=== PATIENT | male | born 1945 | race Caucasian/White ===

== ENCOUNTER 2017-08-03 07:33 | Outpatient (CLI) | payer MEDICARE, OTHER ==
--- NOTE | 2017-08-06 17:23 | Ultrasound Report ---
DATE OF SERVICE: 08/03/2017 SCROTAL DUPLEX: 08/03/2017 CLINICAL INDICATION: Pain. TECHNIQUE: Real-time sonographic vascular imaging was performed by the signal maintenance technician through the scrotum utilizing both color-flow and Doppler spectral analysis. Multiple client care representative static images were saved for review. FINDINGS The right testicle measures 3.8 x 3.1 x 2.3 cm. It demonstrates normal flow and echotexture. Trace hydrocele is noted. No varicocele is seen. A 6 mm cyst is noted in the head of the right epididymis. The left testicle measures 3.6 x 3.2 x 2.1 cm. It demonstrates normal flow and echotexture. Trace hydrocele is present. No varicocele is seen. There is a 5 mm cyst in the head of the left epididymis. There is a small left inguinal hernia present, with the neck of the hernia measuring 8 mm. Fat is noted in the hernia sac. No bowel herniation was visualized. IMPRESSION 1. Small left inguinal hernia. 2. Normal testes. TD: 08/03/2017 19:29
== END 2017-08-03 07:34 | disposition home or self-care (01) ==
LOC: DI 07:33
PROVIDERS: ATTEND Nurse Practitioner Family
DX: K40.90 Unilateral inguinal hernia, without obstruction or gangrene, not specified as recurrent (principal)
CPT/HCPCS: 76870; 93975

== ENCOUNTER 2018-08-01 18:47 | Outpatient (CLI) | payer MEDICARE, OTHER ==
--- NOTE | 2018-08-02 13:40 | Ultrasound Report ---
Reason: ESSENTIAL HYPERTENSION Procedure Date: 08/01/2018 Accession Number: [id number] / [id number] Procedure: US - Aorta Screening CPT Code: FULL RESULT: EXAM: AORTIC DOPPLER ULTRASOUND EXAM DATE: 08/01/2018 06:58 PM. CLINICAL HISTORY: Essential hypertension. COMPARISON: None. TECHNIQUE: Real-time sonographic imaging of retroperitoneal vascular structures, including color-flow, Doppler flow and spectral analysis was performed by the spot worker. Multiple customer service representative teacher static images were saved for review. FINDINGS: Aorta: The abdominal aorta was adequately visualized. No evidence for abdominal aortic aneurysm. Mild atheromatous disease is noted. Aorta proximal: Sagittal plane AP 2.6 cm. Aorta mid: Transverse: 2.4 x 1.7 cm. Aorta distal: Transverse: 1.7 x 1.9 cm. Caliber within normal limits: Yes. Plaque Visualized: Yes. Distally low amount. Right iliac: Transverse: 1.2 x 1.2 cm. Left iliac: Transverse: 1.2 x 1.2 cm. Iliac Vessels: The visualized proximal common iliac arteries are normal in caliber. Other: None. IMPRESSION: No abdominal aortic aneurysm. RADIA
== END 2018-08-01 18:48 | disposition home or self-care (01) ==
LOC: DI 18:47
PROVIDERS: ATTEND Family Medicine
DX: I10 Essential (primary) hypertension (principal)
CPT/HCPCS: 76706

== ENCOUNTER 2018-09-19 16:54 | Outpatient (CLI) | payer MEDICARE, OTHER ==
[2018-09-19 17:10] LABS: BASOPHILS # (AUTO) 0.1 10^3/uL (0.0-0.1); BASOPHILS % (AUTO) 0.7 %; EOSINOPHILS # (AUTO) 0.3 10^3/uL (0.0-0.7); EOSINOPHILS % (AUTO) 3.2 %; HGB - HEMOGLOBIN 14.5 g/dL (14.0-18.0); LYMPHOCYTES # (AUTO) 2.6 10^3/uL (1.5-3.5); LYMPHOCYTES % (AUTO) 25.3 %; MEAN CORPUSCULAR HEMOGLOBIN 31.7 pg (27.0-31.0); MEAN CORPUSCULAR HGB CONC 34.2 g/dL (32.0-36.0); MEAN CORPUSCULAR VOLUME 92.7 fL (80.0-94.0); MEAN PLATELET VOLUME 8.1 fL (7.4-11.4); MONOCYTES # (AUTO) 0.9 10^3/uL (0.0-1.0); MONOCYTES % (AUTO) 8.7 %; NEUTROPHILS # (AUTO) 6.5 10^3/uL (1.5-6.6); NEUTROPHILS % (AUTO) 62.1 %; PLT - PLATELET COUNT 282 10^3/uL (130-450); RED BLOOD COUNT 4.58 10^6/uL (4.70-6.10); RED CELL DISTRIBUTION WIDTH 13.3 % (12.0-15.0); WHITE BLOOD COUNT 10.4 x10^3/uL (4.8-10.8)
[2018-09-19 17:22] LABS: ALBUMIN 4.4 g/dL (3.2-5.5); ALBUMIN/GLOBULIN RATIO 1.6 (1.0-2.2); BILIRUBIN,TOTAL 0.5 mg/dL (0.2-1.0); CALCIUM 9.2 mg/dL (8.5-10.3); CREATININE 0.7 mg/dL (0.6-1.2); TOTAL PROTEIN 7.2 g/dL (6.7-8.2)
== END 2018-09-19 16:55 | disposition home or self-care (01) ==
LOC: RT 16:54
PROVIDERS: ATTEND Internal Medicine Gastroenterology
DX: I10 Essential (primary) hypertension (principal); R73.9 Hyperglycemia, unspecified
CPT/HCPCS: 36415; 80053; 85025; 93005

== ENCOUNTER 2018-09-27 07:55 | Day surgery (SDC) | payer MEDICARE, OTHER ==
[~2018-09-27 07:55] MED LIST: MIDAZOLAM 2 MG/2 ML VIAL IVP ONE; fentaNYL 250 MCG/5 ML VIAL IVP ONE
[2018-09-27] MEDS ORDERED: LACTATED RINGERS 1,000 ML IV ONE ×2 (08:16→09:56)
[2018-09-27 11:09] VITALS: BP 120/69
== END 2018-09-27 07:56 | disposition home or self-care (01) ==
LOC: SDS 07:55
PROVIDERS: ATTEND Internal Medicine Gastroenterology
PROC: 0DJD8ZZ Inspection of Lower Intestinal Tract, Via Natural or Artificial Opening Endoscopic (ICD-10-PCS; principal; 2018-09-27 09:15)
DX: Z12.11 Encounter for screening for malignant neoplasm of colon (principal); K57.30 Diverticulosis of large intestine without perforation or abscess without bleeding; K21.9 Gastro-esophageal reflux disease without esophagitis; I10 Essential (primary) hypertension; Z79.899 Other long term (current) drug therapy; Z87.19 Personal history of other diseases of the digestive system; Z85.46 Personal history of malignant neoplasm of prostate; Z92.3 Personal history of irradiation; Z79.82 Long term (current) use of aspirin; Z87.891 Personal history of nicotine dependence; Z80.1 Family history of malignant neoplasm of trachea, bronchus and lung
CPT/HCPCS: G0121; J3010; J7120

== ENCOUNTER 2019-01-01 09:40 | Outpatient (CLI) | payer MEDICARE, OTHER ==
--- NOTE | 2019-01-01 11:46 | Ultrasound Report ---
Reason: TESTICULAR MASS Procedure Date: 01/01/2019 Accession Number: [id number] / [id number] Procedure: US - Testicle CPT Code: FULL RESULT: EXAM: SCROTAL ULTRASOUND EXAM DATE: 01/01/2019 10:24 AM. CLINICAL HISTORY: Large left scrotal mass. History of previous bilateral inguinal hernia surgery. COMPARISON: Ultrasound 08/03/2017. TECHNIQUE: Real-time scanning was performed with static images obtained. Color-flow images were utilized. FINDINGS: Right: Testis: 2.3 x 1.7 x 0.8 cm. Diffusely echogenic right testis with absent intratesticular blood flow. Epididymis: 1.8 cm. Normal size and echotexture. No mass or abnormal blood flow. Hydrocele: None. Varicocele: None. Left: Testis: 4.4 x 3.0 x 2.9 cm. Normal size and echotexture. No mass, calcification, or abnormal blood flow. Epididymis: 1.2 cm. Incidental benign 5 mm maximal diameter left epididymal cyst of no significance. Hydrocele: Large left hydrocele Varicocele: None. IMPRESSION: 1. Large left hydrocele. 2. Normal left testis. 3. Interval development of right testicular atrophy with absent intratesticular blood flow. RADIA
== END 2019-01-01 09:41 | disposition home or self-care (01) ==
LOC: DI 09:40
PROVIDERS: ATTEND Nurse Practitioner Family
DX: N43.3 Hydrocele, unspecified (principal); N50.0 Atrophy of testis
CPT/HCPCS: 76870

== ENCOUNTER 2019-04-08 17:13 | Outpatient (CLI) | payer MEDICARE, OTHER ==
--- NOTE | 2019-04-09 19:50 | XRAY Report ---
Reason: LOW BACK PAIN Procedure Date: 04/08/2019 Accession Number: [id number] / [id number] Procedure: XR - Lumbar Spine 2 View CPT Code: FULL RESULT: EXAM: LUMBOSACRAL SPINE RADIOGRAPHY EXAM DATE: 04/08/2019 05:25 PM. CLINICAL HISTORY: Low back pain. COMPARISONS: LUMBAR SPINE 2 VIEW 05/04/2015. TECHNIQUE: 2 views. FINDINGS: Alignment: Mild levoscoliosis centered at L2-L3 and mild rightward listhesis at L2-L3 appear mildly increased. Very mild L1-L2 and L2-L3 and minimal L4-L5 retrolistheses are without significant change. Bones: Five [id number] lumbar vertebral bodies are present. No fractures or bone lesions. Disks: Mild multilevel disk space narrowing and mild to moderate vertebral body spurring are mildly progressed. Facets: L4-L5 and L5-S1 degenerative disease appears similar. Sacroiliac Joints: Unremarkable. Soft Tissues: Normal. The visualized bowel gas pattern is normal. IMPRESSION: 1. No acute abnormality. 2. Mild levoscoliosis is mildly increased. 3. Very mild L1-L2 and L2-L3 and minimal L4-L5 retrolistheses are without significant change. 4. Degenerative disk and facet disease, similar to mildly progressed. RADIA
== END 2019-04-08 17:14 | disposition home or self-care (01) ==
LOC: DI 17:13
PROVIDERS: ATTEND Nurse Practitioner Family
DX: M51.36 Other intervertebral disc degeneration, lumbar region (principal); M43.16 Spondylolisthesis, lumbar region; M47.817 Spondylosis without myelopathy or radiculopathy, lumbosacral region; M47.816 Spondylosis without myelopathy or radiculopathy, lumbar region
CPT/HCPCS: 72100

== ENCOUNTER 2020-04-19 04:34 | Emergency (ER) | payer MEDICARE, OTHER ==
--- NOTE | 2020-04-19 04:42 | ED Physician Documentation ---
History of Present Illness - Stated complaint Stated Complaint: TOOTH PX - History obtained from History obtained from: Patient - Additonal information Additional information: Patient is a 75-year-old male who presents with a chief complaint of dental pain. He reports he usually takes amoxicillin but has run out. He had surgery for cleft lip and palate as a child his last surgery was at age 14 he does have implants and hardware. He denies any fevers. Review of Systems Constitutional: reports: Reviewed and negative Eyes: reports: Reviewed and negative Ears: reports: Reviewed and negative Nose: reports: Reviewed and negative Throat: reports: Dental pain / toothache Cardiac: reports: Reviewed and negative Respiratory: reports: Reviewed and negative GI: reports: Reviewed and negative : reports: Reviewed and negative Skin: reports: Reviewed and negative Musculoskeletal: reports: Reviewed and negative Neurologic: reports: Reviewed and negative Psychiatric: reports: Reviewed and negative Endocrine: reports: Reviewed and negative Immunocompromised: reports: Reviewed and negative PD PAST MEDICAL HISTORY - Present Medications Home Medications: Ambulatory Orders Medication Instructions Recorded Confirmed Acyclovir 400 mg PO DAILY 09/26/18 09/27/18 Amlodipine Besylate 5 mg PO DAILY 09/26/18 09/27/18 Atorvastatin Calcium 40 mg PO DAILY 09/26/18 09/27/18 Losartan Potassium 100 mg PO DAILY 09/26/18 09/27/18 Naproxen Sodium [Aleve] 220 mg PO PRN PRN 09/26/18 09/27/18 Omeprazole 20 mg PO DAILY 09/26/18 09/27/18 Penicillin V Potassium 500 mg PO QID #28 tablet 04/19/20 - Allergies Allergies/Adverse Reactions: Allergies Allergy/AdvReac Type Severity Reaction Status Date / Time No Known Drug Allergies Allergy Verified 09/26/18 12:59 PD ED PE NORMAL - Vitals Vital signs reviewed: Yes - General General: Alert and oriented X 3, No acute distress, Well developed/nourished - HEENT HEENT: PERRL, Other (Evidence of prior surgeries from cleft lip and palate. No obvious abscess for drainage. No signs of Ky's angina or ANUG.) - Neck Neck: Supple, no meningeal sign - Cardiac Cardiac: RRR, No murmur - Respiratory Respiratory: Clear bilaterally - Abdomen Abdomen: Normal bowel sounds, Soft, Non tender, Non distended - Derm Derm: Warm and dry - Extremities Extremities: No deformity - Neuro Neuro: Alert and oriented X 3 - Psych Psych: Normal mood, Normal affect PD ED PE EXPANDED - HEENT HEENT Visual: 1 - tenderness Results - Vitals Vitals: Vital Signs - 24 hr 04/19/20 04:35 Temperature 36.7 C Heart Rate 70 Respiratory 18 Rate Blood Pressure 166/83 H O2 Saturation 100 Oxygen O2 Source Room air PD MEDICAL DECISION MAKING - ED course ED course: 75-year-old male with dental infection will treat empirically with penicillin no obvious abscess for incision and drainage. Will provide a referral to oral maxillofacial surgeon for follow-up.No signs of Ky's or ANUG. Departure - Departure Disposition: Home, Self Care Clinical Impression: Dental infection Condition: Stable Instructions: ED Tooth Pain Follow-Up: Sandra Mcconnell ARNP [Primary Care Provider] - Russ Hernández DDS [Provider Admit Priv/Credential] - Prescriptions: Penicillin V Potassium 500 mg PO QID #28 tablet Comments: Take antibiotics as directed. Follow-up with your dental provider this week for follow-up.
[2020-04-19] MEDS ORDERED: HYDROcod/ACETAM 5/325 MG TABLET PO STA (04:48)
[2020-04-19] MEDS ORDERED: PENICILLIN VK 250 MG TABLET PO STA (04:48)
[2020-04-19 05:17] VITALS: BP 158/80
== END 2020-04-19 05:15 | disposition home or self-care (01) ==
LOC: ED 04:34
DX: K04.7 Periapical abscess without sinus (principal)
CPT/HCPCS: 99282; 99283; A9270

== ENCOUNTER 2021-04-01 08:25 | Outpatient (CLI) | payer MEDICARE ==
[2021-04-01 15:06] LABS: BASOPHILS # (AUTO) 0.1 10^3/uL (0.0-0.1); BASOPHILS % (AUTO) 0.8 %; EOSINOPHILS # (AUTO) 0.3 10^3/uL (0.0-0.7); HCT - HEMATOCRIT 42.7 % (42.0-52.0); HGB - HEMOGLOBIN 14.2 g/dL (14.0-18.0); LYMPHOCYTES # (AUTO) 1.9 10^3/uL (1.5-3.5); LYMPHOCYTES % (AUTO) 21.2 %; MEAN CORPUSCULAR HEMOGLOBIN 31.6 pg (27.0-31.0); MEAN CORPUSCULAR HGB CONC 33.3 g/dL (32.0-36.0); MEAN CORPUSCULAR VOLUME 95.1 fL (80.0-94.0); MONOCYTES # (AUTO) 0.8 10^3/uL (0.0-1.0); MONOCYTES % (AUTO) 9.2 %; NEUTROPHILS # (AUTO) 5.8 10^3/uL (1.5-6.6); NEUTROPHILS % (AUTO) 65.6 %; PLT - PLATELET COUNT 284 10^3/uL (130-450); RED BLOOD COUNT 4.49 10^6/uL (4.70-6.10); WHITE BLOOD COUNT 8.9 x10^3/uL (4.8-10.8)
[2021-04-01 15:28] LABS: ALBUMIN/GLOBULIN RATIO 1.4 (1.0-2.2); BILIRUBIN,TOTAL 0.6 mg/dL (0.2-1.0); CREATININE 0.8 mg/dL (0.6-1.2); POTASSIUM 4.7 mmol/L (3.5-5.0); TOTAL PROTEIN 6.8 g/dL (6.7-8.2)
== END 2021-04-01 08:26 | disposition home or self-care (01) ==
LOC: LAB.S 08:25
PROVIDERS: ATTEND Family Medicine
DX: R10.11 Right upper quadrant pain (principal)
CPT/HCPCS: 36415; 80053; 82150; 83690; 85025

== ENCOUNTER 2021-10-06 07:44 | Outpatient (CLI) | payer MEDICARE ==
[2021-10-06 14:48] LABS: BASOPHILS # (AUTO) 0.1 10^3/uL (0.0-0.1); BASOPHILS % (AUTO) 0.7 %; EOSINOPHILS # (AUTO) 0.3 10^3/uL (0.0-0.7); EOSINOPHILS % (AUTO) 2.7 %; HCT - HEMATOCRIT 41.8 % (42.0-52.0); HGB - HEMOGLOBIN 14.4 g/dL (14.0-18.0); LYMPHOCYTES # (AUTO) 2.5 10^3/uL (1.5-3.5); MEAN CORPUSCULAR HEMOGLOBIN 32.1 pg (27.0-31.0); MEAN CORPUSCULAR HGB CONC 34.4 g/dL (32.0-36.0); MEAN CORPUSCULAR VOLUME 93.3 fL (80.0-94.0); MEAN PLATELET VOLUME 11.1 fL (7.4-11.4); MONOCYTES % (AUTO) 10.1 %; NEUTROPHILS # (AUTO) 5.8 10^3/uL (1.5-6.6); NEUTROPHILS % (AUTO) 60.2 %; PLT - PLATELET COUNT 283 10^3/uL (130-450); RED BLOOD COUNT 4.48 10^6/uL (4.70-6.10); RED CELL DISTRIBUTION WIDTH 12.8 % (12.0-15.0); WHITE BLOOD COUNT 9.7 x10^3/uL (4.8-10.8)
[2021-10-06 15:11] LABS: ALBUMIN/GLOBULIN RATIO 1.4 (1.0-2.2); BILIRUBIN,TOTAL 0.5 mg/dL (0.2-1.0); CREATININE 0.9 mg/dL (0.6-1.2); POTASSIUM 4.1 mmol/L (3.5-5.0); TOTAL PROTEIN 6.8 g/dL (6.7-8.2)
== END 2021-10-06 07:45 | disposition home or self-care (01) ==
LOC: LAB.S 07:44
PROVIDERS: ATTEND Physician Assistant
DX: R42 Dizziness and giddiness (principal)
CPT/HCPCS: 36415; 80053; 85025